=== PATIENT | male | born 1960 | race Caucasian/White ===

== ENCOUNTER → 2018-08-31 | Outpatient (CLI) | payer BC, OTHER ==
--- NOTE | 2018-08-31 08:21 | Diagnostic Imaging Report ---
PROCEDURE: US Abdomen, limited. TECHNIQUE: Multiple realtime grayscale images were obtained over the abdomen in various projections. INDICATION: Right flank pain. No previous for comparison. Liver parenchyma shows generalized elevated echotextures consistent with likely at least mild hepatic steatosis. An anechoic lesion in the left hepatic lobe with posterior acoustical enhancement is presumed a cyst measuring 1.4 cm. No pathological dilatation of the intrahepatic biliary ducts, the common bile duct could not be visualized presumed nondilated. The right kidney is nondilated and appeared normal. The gallbladder normal. There is no ascites. Pancreas was obscured by overlying bowel gas. IMPRESSION: Hepatic steatosis and probable cyst left hepatic lobe. Normal gallbladder with no biliary dilatation or ascites. Dictated by: Dictated on workstation # [id number]
== END ==
LOC: RAD 06:53
PROVIDERS: ATTEND Nurse Practitioner Community Health
DX: K76.0 Fatty (change of) liver, not elsewhere classified (principal)
CPT/HCPCS: 76705

== ENCOUNTER 2023-10-08 05:47 | Outpatient (CLI) | payer BC ==
[~2023-10-08] VITALS: Ht 180.3 cm; Wt 108.4 kg
[2023-10-15] MEDS ORDERED: METO50TA7 PO (10:53)
[2023-10-15] MEDS ORDERED: MTP100TCR PO (10:53)
[2023-10-15] MEDS ORDERED: HYDR25TA4 PO (10:53)
[2023-10-15] MEDS ORDERED: LOSA100T58 PO (10:53)
[2023-10-20] MEDS ORDERED: SITA100T12 PO (12:14)
[2023-10-20] MEDS ORDERED: ATOR10TA66 PO (12:14)
== END 2023-10-15 11:01 | disposition home or self-care (01) ==
LOC: PREOP 05:47
PROVIDERS: ATTEND Surgery
DX: Z01.818 Encounter for other preprocedural examination (principal)